=== PATIENT | female | born 1970 | race Caucasian/White ===

== ENCOUNTER 2018-10-01 09:19 | Outpatient (CLI) | payer OTHER | END 2018-10-01 09:22 | disposition home or self-care (01) | LOC: SONOGRAMA 09:19 | DX: E04.1 Nontoxic single thyroid nodule (principal) ==

== ENCOUNTER 2021-05-06 10:57 | Outpatient (CLI) | payer OTHER | END 2021-05-06 14:17 | disposition home or self-care (01) | LOC: SONOGRAMA 10:57 | PROVIDERS: ATTEND Pathology Anatomic Pathology & Clinical Pathology | DX: E04.1 Nontoxic single thyroid nodule (principal) ==